=== PATIENT | male | born 1955 | race Hispanic/Latino ===

== ENCOUNTER 2017-12-20 21:31 | Emergency (ER) | payer BC ==
[~2017-12-20] VITALS: Ht 162.6 cm; Wt 59.4 kg
[2017-12-20] MEDS ORDERED: CEFAZOLIN SOD 1 GM/NS 50ML 100 ML IV ONE (21:45)
[2017-12-20 23:00] VITALS: BP 138/80
== END 2017-12-20 23:03 | disposition home or self-care (01) ==
LOC: FSED 21:31
DX: M25.522 Pain in left elbow (principal); M10.9 Gout, unspecified; F17.210 Nicotine dependence, cigarettes, uncomplicated
CPT/HCPCS: 80048; 85025; 99284